=== PATIENT | male | born 1965 | race Caucasian/White ===

== ENCOUNTER 2018-05-21 15:43 | Inpatient (IN) | payer OTHER ==
[~2018-05-21] VITALS: Ht 185.4 cm; Wt 127.7 kg
[~2018-05-21 15:43] MED LIST: BUPR150T3 PO; LINE600T PO; TRAM50TA4 PO
[2018-05-21 16:24] LABS: BASOPHILS % (AUTO) 0.9 % (0.0-5.0); EOSINOPHILS % (AUTO) 1.8 % (0.0-8.0); HEMATOCRIT 42.7 % (42-54); LYMPHOCYTES % (AUTO) 25.2 % (21.0-51.0); MEAN CORPUSCULAR HEMOGLOBIN 33.1 pg (27.0-33.0); MEAN CORPUSCULAR HGB CONC 34.2 g/dL (32.0-36.0); MEAN CORPUSCULAR VOLUME 96.8 fL (79-99); MONOCYTES % (AUTO) 8.3 % (3.0-13.0); NEUTROPHILS % (AUTO) 63.8 % (40.0-77.0); PLATELET COUNT (AUTO) 136 K/uL (130-400); RED BLOOD CELL COUNT(AUTO) 4.41 MIL/uL (4.50-6.20); RED CELL DISTRIBUTION WIDTH 13.3 % (11.0-15.5); WHITE BLOOD COUNT (AUTO) 7.9 K/uL (4.8-10.8)
[2018-05-21] MEDS ORDERED: IPRATROPIUM/ALBUTEROL SULFATE 3 ML SOLUTION IH ONE (16:29)
[2018-05-21 16:45] LABS: INR 0.99 (0.85-1.15); PARTIAL THROMBOPLASTIN TIME 30.3 SEC (26.3-35.5); PROTHROMBIN TIME 10.4 SEC (9.6-11.6)
[2018-05-21 17:09] LABS: POTASSIUM 3.7 mmol/L (3.5-5.1)
[2018-05-21 17:13] LABS: ALBUMIN 3.7 g/dL (3.5-5.0); BILIRUBIN,TOTAL 0.3 mg/dL (0.2-1.0); TOTAL PROTEIN, SERUM 7.3 g/dL (6.0-8.3)
[2018-05-21] MEDS ORDERED: ACETAMINOPHEN EXTRA STRENGTH 500 MG TABLET ONE (17:25)
[2018-05-21 18:56] LABS: ABG BASE EXCESS 1.2 mmol/L (-2.0-3.0); ABG HCO3 27.3 mmol/L (21.0-28.0); ABG OXYGEN SATURATION 93.7 % (95.0-99.0); ABG PCO2 49 mmHg (35-48)
[2018-05-21] MEDS ORDERED: HYDROXYZINE HCL 25 MG TABLET ONE (19:05)
[2018-05-21] MEDS ORDERED: FUROSEMIDE 10 MG/ML 4ML VIAL ONE (19:05)
[2018-05-21] MEDS ORDERED: ENOXAPARIN SODIUM 100 MG/1 ML SQ ONE (19:05)
[2018-05-21] MEDS ORDERED: IOHEXOL 350 MG/ML 100ML INFUS..BTL IV ONE (19:15)
[2018-05-21] MEDS ORDERED: SODIUM CHLORIDE 0.9% 250 ML IV ONE (19:39)
[2018-05-21] MEDS ORDERED: HYDROCODONE/ACETAMINOPHEN 5/325 MG TAB PO PRN (21:15)
[2018-05-21] MEDS ORDERED: ACETAMINOPHEN 325 MG TAB PO PRN (21:15)
[2018-05-21] MEDS ORDERED: ONDANSETRON HCL 4 MG/2 ML VIAL IV PRN (21:15)
[2018-05-21 21:35] VITALS: BP 131/93
[2018-05-21] MEDS: IPRATROPIUM/ALBUTEROL SULFATE 3 ML SOLUTION IH SCH (22:04)
[2018-05-21] MEDS: HYDROCODONE/ACETAMINOPHEN 5/325 MG TAB PO PRN (22:08)
[2018-05-21 23:39] LABS: CREATINE KINASE, TOTAL 279 U/L (21-232); MYOGLOBIN 104 ng/mL (10-92)
[2018-05-22] VITALS (7 sets, daily range): BP systolic 128–147; BP diastolic 75–95
[2018-05-22] MEDS: METHYLPREDNISOLONE SOD SUCC 125MG/2ML VIAL IVP SCH ×2 (00:02→06:18)
[2018-05-22] MEDS: LEVOFLOXACIN 500 MG/D5W 100 ML 100 ML IV SCH (00:02)
[2018-05-22] MEDS: IPRATROPIUM/ALBUTEROL SULFATE 3 ML SOLUTION IH SCH ×6 (02:38→23:40)
[2018-05-22 05:44] LABS: BASOPHILS % (AUTO) 0.4 % (0.0-5.0); EOSINOPHILS % (AUTO) 2.7 % (0.0-8.0); HEMATOCRIT 44.6 % (42-54); LYMPHOCYTES % (AUTO) 35.4 % (21.0-51.0); MEAN CORPUSCULAR HEMOGLOBIN 33.9 pg (27.0-33.0); MEAN CORPUSCULAR HGB CONC 34.9 g/dL (32.0-36.0); MEAN CORPUSCULAR VOLUME 97.1 fL (79-99); MONOCYTES % (AUTO) 8.1 % (3.0-13.0); NEUTROPHILS % (AUTO) 53.4 % (40.0-77.0); NUCLEATED RED BLOOD CELLS 0.1 % (0.0-0.19); PLATELET COUNT (AUTO) 160 K/uL (130-400); RED CELL DISTRIBUTION WIDTH 13.4 % (11.0-15.5); WHITE BLOOD COUNT (AUTO) 6.1 K/uL (4.8-10.8)
[2018-05-22 05:51] LABS: HEMOGLOBIN A1C 5.7 % (4.0-6.0)
[2018-05-22 06:08] LABS: ALANINE AMINOTRANSFERASE 30 U/L (12-78); ALBUMIN 3.4 g/dL (3.5-5.0); ASPARTATE AMINOTRANSFERASE 21 U/L (10-37); BILIRUBIN,TOTAL 0.2 mg/dL (0.2-1.0); CARBON DIOXIDE 35 mmol/L (21-32); CHLORIDE 101 mmol/L (101-111); CHOLESTEROL 263 mg/dL (<200); CREATINE KINASE, TOTAL 228 U/L (21-232); CREATININE 1.2 mg/dL (0.5-1.5); GLOMERULAR FILTR. RATE CALC 68 mL/min (>60); GLUCOSE,RANDOM 94 mg/dL (70-105); HDL CHOLESTEROL 23 mg/dL (29-71); LDL DIRECT 186 mg/dL (0-99); MYOGLOBIN 77 ng/mL (10-92); POTASSIUM 3.8 mmol/L (3.5-5.1); SODIUM SERUM 141 mmol/L (136-145); TOTAL PROTEIN, SERUM 6.9 g/dL (6.0-8.3); TRIGLYCERIDES 392 mg/dL (30-200); TROPONIN I < 0.04 ng/mL (0.00-0.06); UREA NITROGEN, BLOOD 12 mg/dL (7-18)
[2018-05-22] MEDS: PANTOPRAZOLE SODIUM 40 MG TABLET.DR PO SCH (09:17)
[2018-05-22] MEDS: ENOXAPARIN SODIUM 100 MG/1 ML SQ SCH (09:18)
[2018-05-22] MEDS: BUPROPION HCL 150 MG TABLET.SA PO SCH (14:30)
[2018-05-22] MEDS: METHYLPREDNISOLONE SOD SUCC 40MG/ML 1ML IVP SCH (14:31)
[2018-05-22] MEDS: FUROSEMIDE 10 MG/ML 4ML VIAL IV SCH ×2 (14:32→20:00)
[2018-05-22] MEDS ORDERED: BUDESONIDE 0.5 MG/2 ML INH IH ONE (18:31)
[2018-05-22] MEDS: BUDESONIDE 0.5 MG/2 ML INH IH SCH (18:39)
[2018-05-23] MEDS: OSELTAMIVIR PHOSPHATE 75 MG CAP PO SCH ×3 (00:12→21:57)
[2018-05-23] MEDS: BUPROPION HCL 150 MG TABLET.SA PO SCH ×3 (00:12→21:57)
[2018-05-23] MEDS: ATORVASTATIN CALCIUM 40 MG TABLET PO SCH ×2 (00:12→21:57)
[2018-05-23] MEDS: LEVOFLOXACIN 500 MG/D5W 100 ML 100 ML IV SCH ×2 (00:12→21:57)
[2018-05-23] MEDS: METHYLPREDNISOLONE SOD SUCC 40MG/ML 1ML IVP SCH ×3 (00:12→15:19)
[2018-05-23] MEDS ORDERED: SODIUM CHLORIDE 0.9% 500ML 500 ML IV ONE (00:22)
[2018-05-23] MEDS: HYDROCODONE/ACETAMINOPHEN 5/325 MG TAB PO PRN ×3 (00:30→21:57)
[2018-05-23 03:00] VITALS: BP 121/69
[2018-05-23 03:51] LABS: ABG BASE EXCESS 1.2 mmol/L (-2.0-3.0); ABG HCO3 26.2 mmol/L (21.0-28.0); ABG PCO2 43 mmHg (35-48)
[2018-05-23] MEDS: FUROSEMIDE 10 MG/ML 4ML VIAL IV SCH (04:07)
[2018-05-23 04:39] LABS: HEMATOCRIT 49.1 % (42-54); MEAN CORPUSCULAR HEMOGLOBIN 32.7 pg (27.0-33.0); MEAN CORPUSCULAR HGB CONC 33.6 g/dL (32.0-36.0); MEAN CORPUSCULAR VOLUME 97.2 fL (79-99); PLATELET COUNT (AUTO) 177 K/uL (130-400); RED BLOOD CELL COUNT(AUTO) 5.06 MIL/uL (4.50-6.20); RED CELL DISTRIBUTION WIDTH 13.5 % (11.0-15.5); WHITE BLOOD COUNT (AUTO) 17.4 K/uL (4.8-10.8)
[2018-05-23 05:01] LABS: CREATININE 1.4 mg/dL (0.5-1.5); MAGNESIUM 2.1 mg/dL (1.80-2.40); PHOSPHORUS 1.1 mg/dL (2.5-4.9); POTASSIUM 4.7 mmol/L (3.5-5.1); THYROID STIMULATING HORMONE 1.04 uIU/mL (0.36-3.74)
[2018-05-23 05:20] LABS: B-TYPE NATRIURETIC PEPTIDE 49 pg/mL (0-100)
[2018-05-23] MEDS: IPRATROPIUM/ALBUTEROL SULFATE 3 ML SOLUTION IH SCH ×4 (06:32→23:38)
[2018-05-23] MEDS: BUDESONIDE 0.5 MG/2 ML INH IH SCH ×2 (06:32→18:38)
[2018-05-23 07:00] VITALS: BP 144/89
[2018-05-23] MEDS: PANTOPRAZOLE SODIUM 40 MG TABLET.DR PO SCH (10:31)
[2018-05-23] MEDS: ENOXAPARIN SODIUM 100 MG/1 ML SQ SCH (10:32)
[2018-05-23 11:00] VITALS: BP 122/75
[2018-05-23 16:00] VITALS: BP 130/79
[2018-05-23] MEDS: FUROSEMIDE 20 MG TABLET PO SCH (20:00)
[2018-05-23] MEDS ORDERED: POTASSIUM PHOS 15 mMOL+NS250ML 250 ML IV SCH (20:00)
[2018-05-23 20:12] VITALS: BP 136/91
[2018-05-23 23:30] VITALS: BP 142/98
[2018-05-24] MEDS: METHYLPREDNISOLONE SOD SUCC 40MG/ML 1ML IVP SCH ×2 (00:54→06:45)
[2018-05-24 03:40] VITALS: BP 131/84
[2018-05-24 04:51] LABS: HEMATOCRIT 44.3 % (42-54); MEAN CORPUSCULAR HEMOGLOBIN 33.4 pg (27.0-33.0); MEAN CORPUSCULAR HGB CONC 33.9 g/dL (32.0-36.0); MEAN CORPUSCULAR VOLUME 98.5 fL (79-99); PLATELET COUNT (AUTO) 154 K/uL (130-400); RED BLOOD CELL COUNT(AUTO) 4.49 MIL/uL (4.50-6.20); RED CELL DISTRIBUTION WIDTH 13.9 % (11.0-15.5); WHITE BLOOD COUNT (AUTO) 16.5 K/uL (4.8-10.8)
[2018-05-24 05:11] LABS: CREATININE 1.4 mg/dL (0.5-1.5); PHOSPHORUS 2.6 mg/dL (2.5-4.9); POTASSIUM 4.6 mmol/L (3.5-5.1)
[2018-05-24] MEDS: IPRATROPIUM/ALBUTEROL SULFATE 3 ML SOLUTION IH SCH ×2 (06:17→11:17)
[2018-05-24] MEDS: BUDESONIDE 0.5 MG/2 ML INH IH SCH (06:17)
[2018-05-24 07:00] VITALS: BP 142/91
[2018-05-24] MEDS: HYDROCODONE/ACETAMINOPHEN 5/325 MG TAB PO PRN (08:52)
[2018-05-24] MEDS: FUROSEMIDE 20 MG TABLET PO SCH (08:53)
[2018-05-24] MEDS: BUPROPION HCL 150 MG TABLET.SA PO SCH (08:53)
[2018-05-24] MEDS: OSELTAMIVIR PHOSPHATE 75 MG CAP PO SCH (08:53)
[2018-05-24] MEDS: PANTOPRAZOLE SODIUM 40 MG TABLET.DR PO SCH (08:53)
[2018-05-24] MEDS ORDERED: ENOXAPARIN SODIUM 40 MG/0.4 ML SYRINGE SQ SCH (09:00)
[2018-05-24] MEDS ORDERED: LEVO500T2 PO (10:22)
[2018-05-24] MEDS ORDERED: PRED20TA3 PO (10:22)
[2018-05-24 11:43] VITALS: BP 132/96
== END 2018-05-24 13:08 | disposition home or self-care (01) | DRG 193 ==
LOC: EDH 15:43 → EDHIP 19:40 → 3DH 21:01
PROVIDERS: ADMIT Internal Medicine; ATTEND Internal Medicine
DX: J18.9 Pneumonia, unspecified organism (principal); J96.21 Acute and chronic respiratory failure with hypoxia; J44.1 Chronic obstructive pulmonary disease with (acute) exacerbation; J44.0 Chronic obstructive pulmonary disease with (acute) lower respiratory infection; I11.9 Hypertensive heart disease without heart failure; Z68.36 Body mass index [BMI] 36.0-36.9, adult; E66.01 Morbid (severe) obesity due to excess calories; I27.81 Cor pulmonale (chronic); E11.51 Type 2 diabetes mellitus with diabetic peripheral angiopathy without gangrene; E78.5 Hyperlipidemia, unspecified; F17.210 Nicotine dependence, cigarettes, uncomplicated; G89.4 Chronic pain syndrome; Z79.899 Other long term (current) drug therapy; Z83.3 Family history of diabetes mellitus; Z86.73 Personal history of transient ischemic attack (TIA), and cerebral infarction without residual deficits; M19.90 Unspecified osteoarthritis, unspecified site; Z88.1 Allergy status to other antibiotic agents
CPT/HCPCS: 36415; 36600; 71045; 71275; 80048; 80053; 80061; 82550; 82803; 83036; 83605; 83735; 83874; 83880; 84100; 84443; 84484; 85025; 85027; 85378; 85610; 85730; 87040; 87633; 93005; 93306; 93925; 93970; 94640; 94664; 99291; J1650; J1940; J1956; J2920; J2930; J7030; J7040; Q9967